=== PATIENT | female | born 1965 | race Caucasian/White ===

== ENCOUNTER 2018-02-26 14:03 | Observation (INO) | payer OTHER ==
[2018-02-26] MEDS ORDERED: Famotidine/PF 20 mg/2ml Vial ONE (14:33)
[2018-02-26] MEDS ORDERED: diphenhydrAMINE 50 MG/ML VIAL ONE (14:33)
[2018-02-26] MEDS ORDERED: methylPREDNISolone Sod Succ/PF 125 MG/2 ML VIAL ONE (14:33)
[2018-02-26] MEDS ORDERED: EPINEPHrine 1 MG/ML AMP ONE (16:24)
[2018-02-26 18:40] VITALS: BMI 36.0
[2018-02-26] MEDS ORDERED: Ondansetron ODT 4 MG TAB PO PRN (19:10)
[2018-02-26] MEDS ORDERED: diphenhydrAMINE 50 MG/ML VIAL IVP PRN (19:10)
[2018-02-26] MEDS ORDERED: Ondansetron HCl/PF 4 MG/2 ML Vial IVP PRN (19:10)
[2018-02-26] MEDS ORDERED: cloNIDine 0.1 MG TAB PO PRN (19:10)
[2018-02-26] MEDS ORDERED: hydrALAZINE 20 MG/ML VIAL SLOW IVP PRN (19:10)
[2018-02-26] MEDS ORDERED: Acetaminophen 500 MG TAB PO PRN (19:10)
[2018-02-26] MEDS ORDERED: Progesterone,Micronized 100 MG CAP PO SCH (21:00)
[2018-02-26] MEDS: clonazePAM 1 MG TAB PO SCH (21:25)
[2018-02-26] MEDS: Methocarbamol 500 MG TAB PO SCH (21:25)
[2018-02-26] MEDS: Famotidine 20 MG TAB PO SCH (21:26)
[2018-02-26] MEDS: diphenhydrAMINE 25 MG CAP PO SCH (21:26)
[2018-02-26] MEDS: DULoxetine 60 MG CAP PO SCH (21:26)
[2018-02-26] MEDS: methylPREDNISolone Sod Succ/PF 125 MG/2 ML VIAL IVP SCH (21:32)
[2018-02-26] MEDS: Acetaminophen/Codeine 30-300mg Tablet PO PRN (21:34)
[2018-02-26 21:50] LABS: Bilirubin Negative (Negative); Blood, Urine Negative (Negative); Clarity CLEAR (Clear); Glucose, Urine (Dipstick) Negative (Negative); Leukocyte Negative (Negative); Nitrite Negative (Negative); Protein, Urine (Dipstick) Negative (Neg-Trace); Specific Gravity, Urine 1.004 (1.002-1.036); Urobilinogen 0.2 mg/dL (0.2-1.0); pH, Urine 6.5 (5.0-9.0)
[2018-02-26 21:52] LABS: Bacteria/HPF None Seen HPF (None Seen); Hyaline Casts/LPF 0-3 HYALINE CAST LPF (0-3 Hyaline); RBC/HPF 0-3 HPF (0-3); Squamous Epithelial None Seen HPF (0-3); WBC/HPF None Seen HPF (0-3)
[2018-02-26] MEDS ORDERED: diphenhydrAMINE 50 MG/ML VIAL IVP SCH (23:59)
--- NOTE | 2018-02-27 00:43 | HP ---
DATE OF ADMISSION: 02/26/2018 PRIMARY CARE PHYSICIAN: Sixto Whatley M.D. CHIEF COMPLAINT: Difficulty swallowing and shortness of breath. HISTORY OF PRESENT ILLNESS: This is a 52-year-old female who presented to [facility] Emergency Department complaining of difficulty swallowing, mild shortness of breath that began last 24-48 hours. The patient states she noticed difficulty swallowing after eating some bread with honey and butter approximately 2 hours after the onset of symptoms. The patient denied a ny hives, rash, chemical exposure or family members with similar symptoms. The patient does admit th at she recently started lisinopril approximately 3-4 days prior to this evaluation, initiated by her primary care provider. The patient admits to some throat discomfort, throat clearing, mild hoarsenes s associated with the difficulty swallowing. In the emergency room, the patient underwent general ev aluation noted with angioedema, treated with IV Benadryl, Pepcid, Solu-Medrol, and epinephrine 0.3 m g IM x1 dose. The patient was transferred to the observation unit for further evaluation. PAST MEDICAL HISTORY: 1. Hypertension. 2. Anxiety disorder. 3. Chronic back pain with chronic Tylenol No. 4. PAST SURGICAL HISTORY: Status post hysterectomy. CURRENT MEDICATIONS: 1. Tylenol No. 4, 300/60 mg 1 tab p.o. t.i.d. 2. Methocarbamol 750 mg p.o. q.i.d. 3. Meloxicam 15 mg p.o. daily. 4. Estradiol 2 mg p.o. daily. 5. Micronized progesterone 100 mg p.o. at bedtime. 6. [place] Thyroid 60 mg p.o. daily. 7. Clonazepam 1 mg p.o. b.i.d. 8. Abilify 3 mg p.o. daily. 9. Cymbalta 60 mg p.o. b.i.d. 10. Lisinopril 2.5 mg p.o. daily. ALLERGIES: PENICILLIN. FAMILY HISTORY: No inheritable diseases per patient report. SOCIAL HISTORY: The patient resides in [place], [place]. Currently disabled. No alcohol, tobacco or il licit drug use. REVIEW OF SYSTEMS: The following complete review of systems was negative, unless otherwise mentioned in the HPI or below: Constitutional: Weight loss or gain, ability to conduct usual activities. Ski n: Rash, itching. Eyes: Double vision, pain. ENT/Mouth: Nose bleeding, neck stiffness, pain, tend erness. Cardiovascular: Palpitations, dyspnea on exertion, orthopnea. Respiratory: Shortness of b reath, wheezing, cough, hemoptysis, fever or night sweats. Gastrointestinal: Poor appetite, abdomin al pain, heartburn, nausea, vomiting, constipation, or diarrhea. Genitourinary: Urgency, frequency, dysuria, nocturia. Musculoskeletal: Pain, swelling. Neurologic/Psychiatric: Anxiety, depression. Allergy/Immunologic: Skin rash, bleeding tendency. Otherwise negative except as stated per HPI. PHYSICAL EXAMINATION: VITAL SIGNS: On admission, blood pressure 146/94, pulse 84, respiratory rate 20, temperature 98.9 de grees Fahrenheit, O2 saturation 99% on room air. GENERAL APPEARANCE: This is a 52-year-old female, alert and oriented x3, pleasant, respons ulices, in no acute distress. HEENT: Pupils are equal, round, and reactive to light and accommodation. Extraocular muscles are in tact. No scleral icterus, no conjunctival injection. Nares patent. OP is clear. Positive uvula ed juan with edema of the peritonsillar region. Mild salivary pooling in the posterior pharynx. Airway clear. No hoarseness. NECK: Supple, no cervical adenopathy, no thyromegaly, no carotid bruits, no JVD appreciated. Cervic al spine with full active and passive range of motion. No meningeal signs appreciated. CHEST: Lungs are clear to auscultation bilaterally. CARDIOVASCULAR: S1, S2, without noted murmur, rub or gallop. ABDOMEN: Rounded, soft, nontender, nondistended. Bowel sounds are positive in all four quadrants. There is no hepatosplenomegaly, no abdominal bruits, no rebound or guarding appreciated. EXTREMITIES: Warm and dry with fair turgor. No clubbing, cyanosis or asymmetric edema appreciated. Pulses palpable distally at the dorsalis pedis, posterior tibial, and popliteal arteries bilaterally . Capillary refill less than 2 seconds. NEUROLOGIC: Cranial nerves II-XII are grossly intact. No focal or lateralizing signs appreciated. PERTINENT LAB AND X-RAY FINDINGS: No current labs available. Telemetry shows sinus mechanism with h eart rates in the 70s. ASSESSMENT AND PLAN: 1. Angioedema secondary to ELENA inhibitors. The patient will be observed on the telemetry unit. We will continue Solu-Medrol 60 mg IV q.6 hours with additional Benadryl 25 mg p.o. q.6 hours. Continue Pepcid 20 mg p.o. b.i.d. We will continue to monitor for upper airway obstruction, currently airway patent. 2. Hypertension. We will provide p.r.n. clonidine/hydralazine for systolic blood pressure greater t srinivasan or equal to 170. Discontinue lisinopril. 3. Hypothyroidism. Continue [place] Thyroid 60 mg p.o. daily. 4. Chronic back pain. Resume home pain medication regimen. 5. Prophylaxis. Sequential compression devices while in bed. Pepcid 20 mg p.o. b.i.d. 6. Code status is FULL. Surrogate medical decision maker is the patient's mother.
[2018-02-27] MEDS: Methocarbamol 500 MG TAB PO SCH ×2 (01:12→02:29)
[2018-02-27] MEDS ORDERED: Methocarbamol 500 MG TAB PO PRN (01:28)
[2018-02-27] MEDS: diphenhydrAMINE 25 MG CAP PO SCH ×3 (02:07→13:29)
[2018-02-27] MEDS: methylPREDNISolone Sod Succ/PF 125 MG/2 ML VIAL IVP SCH ×3 (02:10→13:30)
[2018-02-27 04:58] LABS: Anion Gap 12 mmol/L (10-20); BUN (Urea Nitrogen) 7 mg/dL (9.8-20.1); Calc. Creatinine Clearance 1618 mL/min (70-130); Carbon Dioxide 25 mmol/L (22-29); Chloride 105 mmol/L (98-107); Estimated GFR-MDRD Greater than 90; Glucose 145 mg/dL (70-105); Potassium 3.8 mmol/L (3.5-5.1); Sodium 138 mmol/L (136-145)
[2018-02-27 05:56] LABS: Band 9 % (5-11); Hemoglobin 13.3 g/dL (12.0-16.0); Lymphocytes 11 % (21-51); MDiff Complete? YES; Mean Corpuscular HGB CONC 32.6 g/dL (32.0-36.0); Mean Corpuscular Hemoglobin 28.3 pg (27.0-31.0); Mean Corpuscular Volume 86.9 fL (78.0-98.0); Mean Platelet Volume 6.2 fL (7.4-10.4); Monocytes 3 % (0-10); Neutrophil 75 % (42-75); Platelet Count 359 thou/uL (130-400); RBC Distribution Width 12.8 % (11.5-14.5); Reactive Lymphocytes 2 % (0-10); Red Blood Cell (RBC) Count 4.71 mill/uL (4.20-5.40); White Blood Cell (WBC) Count 8.3 thou/uL (4.8-10.8)
[2018-02-27] MEDS: Famotidine 20 MG TAB PO SCH (07:54)
[2018-02-27] MEDS: DULoxetine 60 MG CAP PO SCH (07:54)
[2018-02-27] MEDS: clonazePAM 1 MG TAB PO SCH (07:55)
[2018-02-27] MEDS: Acetaminophen/Codeine 30-300mg Tablet PO PRN (07:58)
[2018-02-27] MEDS ORDERED: Meloxicam 7.5 MG TAB PO SCH (09:00)
[2018-02-27] MEDS ORDERED: Thyroid 60 MG TAB PO SCH (09:00)
[2018-02-27] MEDS ORDERED: Aripiprazole 2 MG TAB PO SCH (09:00)
[2018-02-27] MEDS ORDERED: Estradiol 1 MG TAB PO SCH (09:00)
[2018-02-27] MEDS ORDERED: Amlodipine 5 MG TAB PO SCH (11:15)
[2018-02-27 11:21] VITALS: TEMP 97.7
[2018-02-27 13:12] VITALS: BP 137/71
--- NOTE | 2018-02-27 14:38 | PDOC.EVN ---
Event Note - Event Note Event Note: patient discussed with NANO Miranda. agree with management and discharge plan
[2018-02-28] MEDS ORDERED: Amlodipine 5 MG TAB PO SCH ×2 (09:00)
--- NOTE | 2018-03-01 10:46 | DIS ---
DATE OF ADMISSION: 02/26/2018 DATE OF DISCHARGE: 02/27/2018 DISCHARGE DIAGNOSES: 1. Angioedema secondary to ELENA inhibitor, stable. 2. Hypertension, stable. 3. Hypothyroidism. 4. Chronic back pain. CONSULTATIONS: None. PERTINENT LABORATORY DATA AND X-RAY FINDINGS: WBC 8.3, RBC 4.71, hemoglobin 13.3. Sodium 138, potas sium 3.8. Urinalysis unremarkable. Blood pressure prior to discharge, 137/71. HOSPITAL COURSE: The patient was admitted after presenting to the ER with swelling of the right side of the pharynx and uvula with some shortness of breath and difficulty swallowing. The patient was a lso noted to have a slightly elevated blood pressure of 146/94, pulse 84, respirations 20, and temper ature of 98.9 degrees Fahrenheit with O2 saturation 99% on room air. She was given one dose of IM ep inephrine 0.3 mg x1 dose and tolerated well without any complications. She was observed overnight an d continued on IV Benadryl, Pepcid, Solu-Medrol 60 mg q.6 hours. She did not develop any chest pain, shortness of breath, or worsening symptoms. She was able to tolerate a liquid diet, which was then transitioned to a regular diet, which she tolerated well without any complications. Her swelling in pharynx along with her uvula enlargement had improved throughout the hospital course. Her home dose of lisinopril was discontinued and she was advised to stop this medication as it would give her simil ar symptoms in the future if taken again. She was then transitioned to amlodipine 2.5 mg daily, whic h she tolerated well. Her blood pressure remained stable throughout the hospital course with no furt her complications. She was examined prior to discharge and had felt that she had returned to [facility]. She was then started on Medrol Dosepak along with Pepcid twice daily, which she was advised to co ntinue these as outpatient post-discharge. She was also provided a prescription for Norvasc 2.5 mg d aily, and was advised to discontinue her home lisinopril. She verbalized her understanding for plan and she was stable for discharge, 02/27/2018. DISCHARGE MEDICATIONS: 1. Amlodipine 2.5 mg daily. 2. Diphenhydramine 25 mg q.6 hours as needed. 3. Pepcid 20 mg twice daily for 5 days. 4. Medrol Dosepak. 5. Clonazepam 1 mg twice daily. 6. [place] Thyroid 60 mg daily. 7. Progesterone 100 mg daily at bedtime. 8. Estradiol 2 mg daily. 9. Meloxicam 7.5 mg daily. 10. Abilify 3 mg daily. 11. Cymbalta 60 mg twice daily. 12. Methocarbamol 750 mg 4 times daily as needed for muscle spasms. 13. Acetaminophen with codeine every 8 hours as needed for pain. FOLLOWUP: The patient was advised to contact her primary care physician, Dr. Sixto Whatley and it was recommended that she follow up within 1-2 weeks of discharge. CONDITION ON DISCHARGE: Stable. ACTIVITY: As tolerated. DIET: Regular diet. CODE STATUS: FULL. DISPOSITION: Home on 02/27/2018.
== END 2018-02-27 14:00 | disposition home or self-care (01) ==
LOC: ERS 14:03 → 2SW 16:40 → UNDOADMOB 18:36 → 2SW 18:36
PROVIDERS: ADMIT Family Medicine; ATTEND Family Medicine
DX: T78.3XXA Angioneurotic edema, initial encounter (principal); T46.4X5A Adverse effect of angiotensin-converting-enzyme inhibitors, initial encounter; G89.29 Other chronic pain; M54.9 Dorsalgia, unspecified; F41.9 Anxiety disorder, unspecified; I10 Essential (primary) hypertension; Z79.899 Other long term (current) drug therapy; Z88.0 Allergy status to penicillin
CPT/HCPCS: 36415; 80048; 81001; 85007; 85027; 87081; 87430; 96361; 96372; 96374; 96375; 96376; 99406; G0378; J0171; J1200; J2930; S0028

== ENCOUNTER 2018-05-24 09:44 | Outpatient (CLI) | payer OTHER ==
--- NOTE | 2018-05-24 11:58 | ULT ---
ULTRASOUND ABDOMEN COMPLETE: DATE: 05/24/2018. HISTORY: Nausea and vomiting, R11.0, in 52-year-old female. FINDINGS: Liver: Normal echogenicity. Gallbladder: Numerous tiny gallstones layering along the dependent aspect of the gallbladder lumen, o n the order of a few millimeters in size each. Normal wall thickness of 2-3 mm. No pericholecystic fluid and no sonographic Lr's sign. Common duct: 4 mm. Spleen: No splenomegaly. Pancreas: Nonspecific sonographic appearance of the head and proximal body. Tail obscured by shadowi ng from bowel gas. Kidneys: No hydronephrosis. Abdominal aorta: No aneurysm. Inferior vena cava: Normal where visualized. IMPRESSION: 1. Cholelithiasis. 2. No evidence of acute cholecystitis or biliary obstruction. JN R POS: [facility]
== END 2018-05-24 09:45 | disposition home or self-care (01) ==
LOC: BICULT 09:44
PROVIDERS: ATTEND Internal Medicine
DX: R11.2 Nausea with vomiting, unspecified (principal); K80.20 Calculus of gallbladder without cholecystitis without obstruction
CPT/HCPCS: 76700

== ENCOUNTER 2019-01-01 07:49 | Outpatient (CLI) | payer OTHER ==
--- NOTE | 2019-01-01 12:36 | NM ---
HEPATOBILIARY SCAN: 01/01/19 HISTORY: Cholelithiasis. RADIOPHARMACEUTICAL: 4.7 millicuries technetium 99mm-Mebrofenin injected intravenously. FINDINGS: There is good contrast extraction of the liver with normal tracer excretion into the biliary tract an d small bowel loops and normal filling of the gallbladder. The calculated gallbladder ejection fraction measures 2% following an oral fatty meal. IMPRESSION: Chronic cholecystitis/gallbladder dyskinesia. POS: [facility]
== END 2019-01-01 07:50 | disposition home or self-care (01) ==
LOC: NM 07:49
PROVIDERS: ATTEND Internal Medicine
DX: K80.20 Calculus of gallbladder without cholecystitis without obstruction (principal); R10.11 Right upper quadrant pain
CPT/HCPCS: 78227; A9537

== ENCOUNTER 2019-02-10 06:50 | Outpatient (CLI) | payer OTHER ==
[2019-02-10 11:36] LABS: #Basophils 0.1 thou/uL (0.0-0.2); #Eosinphils 0.1 thou/uL (0.0-0.7); #Lymphocytes 2.6 thou/uL (1.20-3.40); #Monocytes 0.5 thou/uL (0.11-0.59); #Neutrophils 4.6 thou/uL (1.40-6.50); %Basophils 0.9 % (0.0-1.0); %Eosinophils 0.9 % (0.0-10.0); %Lymphocytes 33.2 % (21.0-51.0); %Monocytes 6.4 % (0.0-10.0); %Neutrophils 58.7 % (42.0-75.0); Hemoglobin 13.1 g/dL (12.0-16.0); Mean Corpuscular HGB CONC 33.5 g/dL (32.0-36.0); Mean Corpuscular Hemoglobin 29.3 pg (27.0-31.0); Mean Corpuscular Volume 87.4 fL (78.0-98.0); Platelet Count 342 thou/uL (130-400); RBC Distribution Width 11.9 % (11.5-14.5); Red Blood Cell (RBC) Count 4.46 mill/uL (4.20-5.40); White Blood Cell (WBC) Count 7.9 thou/uL (4.8-10.8)
[2019-02-10 11:47] LABS: ALT (SGPT) 30 U/L (8-55); AST (SGOT) 20 U/L (5-34); Alkaline Phosphatase 92 U/L (40-110); Anion Gap 12 mmol/L (10-20); BUN (Urea Nitrogen) 14 mg/dL (9.8-20.1); Bilirubin, Direct 0.1 mg/dL (0.1-0.3); Bilirubin, Total 0.2 mg/dL (0.2-1.2); Calc. Creatinine Clearance 0 mL/min (70-130); Calcium 9.2 mg/dL (7.8-10.44); Carbon Dioxide 28 mmol/L (22-29); Chloride 99 mmol/L (98-107); Estimated GFR-MDRD 86; Glucose 87 mg/dL (70-105); Potassium 4.8 mmol/L (3.5-5.1); Protein, Total 7.6 g/dL (6.0-8.3); Sodium 134 mmol/L (136-145)
--- NOTE | 2019-02-12 19:49 | EKG ---
Test Reason : Blood Pressure : / mmHG Vent. Rate : 068 BPM Atrial Rate : 068 BPM P-R Int : 216 ms QRS Dur : 102 ms QT Int : 412 ms P-R-T Axes : 066 047 066 degrees QTc Int : 438 ms Sinus rhythm with 1st degree A-V block Cannot rule out Anterior infarct , age undetermined Abnormal ECG No previous ECGs available Confirmed by BEHZAD DYKES, DR. Christie ([id number]) on 02/12/2019 7:48:31 PM Referred By: CARA Confirmed By:DR. Shahnaz WEN MD
== END 2019-02-10 06:51 | disposition home or self-care (01) ==
LOC: LABBT 06:50
PROVIDERS: ATTEND Surgery
DX: Z01.818 Encounter for other preprocedural examination (principal); K80.20 Calculus of gallbladder without cholecystitis without obstruction
CPT/HCPCS: 80048; 80076; 85025; 93005; 93010

== ENCOUNTER 2019-02-13 06:01 | Day surgery (SDC) | payer OTHER ==
[2019-02-10 10:32] VITALS: BMI 36.6
[2019-02-13] MEDS ORDERED: Fentanyl 100 MCG/2 ML VIAL ONE ×3 (06:25→10:59)
[2019-02-13] MEDS ORDERED: Bupivacaine/Epinephrine 0.25% 30 ML VIAL ONE (07:01)
[2019-02-13] MEDS ORDERED: Levofloxacin 500 mg/D5W 100 ml Premix Bag ONE (08:48)
[2019-02-13] MEDS ORDERED: Ketorolac Tromethamine 30 MG/ML VIAL ONE (09:54)
[2019-02-13] MEDS ORDERED: Dexamethasone 20 MG/5 ML VIAL ONE (09:54)
[2019-02-13] MEDS ORDERED: Rocuronium Bromide 10 MG/ML (10ML VIAL) ONE (09:54)
[2019-02-13] MEDS ORDERED: Lidocaine 1% PF 5 ML VIAL ONE (09:54)
[2019-02-13] MEDS ORDERED: Ondansetron PF 4 MG/2 ML Vial ONE (09:54)
[2019-02-13] MEDS ORDERED: PROPOFOL 200 MG/20 ML VIAL ONE (09:54)
--- NOTE | 2019-02-13 10:40 | OP ---
DATE OF PROCEDURE: 02/13/2019 PREOPERATIVE DIAGNOSIS: Symptomatic gallstones. POSTOPERATIVE DIAGNOSIS: Symptomatic gallstones. PROCEDURE PERFORMED: Laparoscopic cholecystectomy. ANESTHESIA: General. ESTIMATED BLOOD LOSS: Minimal. COMPLICATIONS: None. SPECIMEN: Gallbladder. FINDINGS: Chronic cholecystitis. PROCEDURE IN DETAIL: The patient was taken to the operating room and laid supine on the operating room table. After general anesthetic was obtained, the abdomen was prepped and draped in a sterile fashion. A curved incision was made below the umbilicus. Cautery was used to dissect down to the umbilical fascia. Umbilical fascia was incised and held up using a Carlos. The abdominal cavity was entered using a Patricia clamp. Holding stitch of Vicryl was placed on each side of the fascia. Wen trocar was placed. High-flow pneumoperitoneum was obtained. An upper midline 5 mm port and 2 right upper quadrant 5 mm ports were placed under direct camera visualization. The gallbladder was retracted from the gallbladder fossa. The peritoneum of the gallbladder was opened anteriorly and posteriorly. The critical view triangle was seen showing only the cystic duct and cystic artery branching from medial to lateral. There were no other branching structures. Two clips were placed proximally on the cystic duct and one laterally. It was cut using laparoscopic scissors. The cystic artery was taken in the same way. Electrocautery was then used to dissect the gallbladder out of the gallbladder fossa. The gallbladder was placed in an Endo catch bag and brought out through the Wen. There was no bleeding or bile in the liver bed. The cystic duct stump and cystic artery stump were intact, without evidence of extravasation or bleeding. All port sites were infiltrated using local anesthesia. All ports were removed under camera visualization. Pneumoperitoneum was let down. The Vicryl was used to close the fascial defect below the umbilicus. All incisions were irrigated and closed using 4-0 Monocryl and Dermabond. The patient was en route to Recovery in stable condition. All instrument counts, needle counts and lap counts were correct. Job ID: [id number]
[2019-02-13] MEDS ORDERED: HYDROcodone/Acetaminophen 5/325 mg Tablet ONE (12:28)
== END 2019-02-13 13:20 | disposition home or self-care (01) ==
LOC: SDC 06:01
PROVIDERS: ATTEND Surgery
PROC: 0FT44ZZ Resection of Gallbladder, Percutaneous Endoscopic Approach (ICD-10-PCS; principal; 2019-02-13)
DX: K80.10 Calculus of gallbladder with chronic cholecystitis without obstruction (principal); I10 Essential (primary) hypertension; F41.9 Anxiety disorder, unspecified; F32.9 Major depressive disorder, single episode, unspecified; E07.9 Disorder of thyroid, unspecified; F17.200 Nicotine dependence, unspecified, uncomplicated; G89.29 Other chronic pain; Z79.1 Long term (current) use of non-steroidal anti-inflammatories (NSAID); Z79.899 Other long term (current) drug therapy; Z88.0 Allergy status to penicillin; Z88.8 Allergy status to other drugs, medicaments and biological substances
CPT/HCPCS: 88304; J0131; J0690; J1956; J3010

== ENCOUNTER 2020-02-13 06:52 | Outpatient (CLI) | payer OTHER ==
[2020-02-14 12:00] LABS: SARS-CoV-2 MS2 Positive; SARS-CoV-2 N Gene Negative; SARS-CoV-2 S Gene Negative; SARS-CoV-2 by NAA Not Detected (NotDetected); SARS-CoV-2 orf1ab Negative
== END 2020-02-13 06:53 | disposition home or self-care (01) ==
LOC: LABBT 06:52
PROVIDERS: ATTEND Neurological Surgery
DX: M48.061 Spinal stenosis, lumbar region without neurogenic claudication (principal); M43.16 Spondylolisthesis, lumbar region; Z20.828 Contact with and (suspected) exposure to other viral communicable diseases
CPT/HCPCS: 87635; U0003

== ENCOUNTER 2020-02-18 07:32 | Day surgery (SDC) | payer OTHER ==
[2020-02-13 14:11] VITALS: BMI 38.2
--- NOTE | 2020-02-17 22:17 | HP ---
HISTORY OF PRESENT ILLNESS: Ms. Ponce is a pleasant 54-year-old woman referred to us by Dr. Whatley for evaluation of lower back pain with very convincing claudication symptoms that began roughly 2 to 3 months ago. She reports having lower back pain for many years prior and has attempted physical therapy, epidural steroid injections, all with limited efficacy. MRI from [facility] reveals well-appearing spine other than L4-5 where she has an early grade 1 slip and severe central canal stenosis mostly superimposed by lateral recess encroachment with facet joint. She denies weakness nor bowel or bladder incontinence. PHYSICAL EXAMINATION: Deferred for [facility]. PAST MEDICAL HISTORY: Significant for chronic pain, depression, arthritis, anxiety. ALLERGIES: HYPERTENSION. PAST SURGICAL HISTORY: Partial hysterectomy, cholecystectomy. ALLERGIES: PENICILLIN. CURRENT MEDICATIONS: 1. [place] Thyroid. 2. Clonazepam. 3. Cyclobenzaprine. 4. Duloxetine. 5. Estradiol. 6. Fluticasone. 7. Kenalog. 8. Meloxicam. 9. Methocarbamol. 10. Metoprolol. 11. Olmesartan. 12. Progesterone. 13. Sertraline. 14. Tizanidine. 15. Tramadol. ASSESSMENT: Lumbar spondylolisthesis with spinal stenosis and neurogenic claudication. PLAN: Dr. Dior met with the patient, reviewed imaging, advocated for an L4-5 decompression and fusion. He explained to the patient the risks, benefits, and alternatives to the procedure. The patient expressed understanding and elected to move forward with surgery as discussed. I do believe the patient is mentally competent and capable of making medical decisions for herself. We will move forward with surgery as planned. Job ID: [id number]
[2020-02-18] MEDS ORDERED: Levofloxacin 500 mg/D5W 100 ml Premix Bag ONE (09:08)
[2020-02-18] MEDS ORDERED: Clindamycin/D5W 900 mg/50 ml Premix Bag ONE (09:08)
[2020-02-18] MEDS ORDERED: Ondansetron PF 4 MG/2 ML Vial ONE (09:16)
[2020-02-18] MEDS ORDERED: Glycopyrrolate 0.2 MG/ML 5 ML SYRINGE ONE (09:16)
[2020-02-18] MEDS ORDERED: Lidocaine 1% PF 5 ML VIAL ONE (09:16)
[2020-02-18] MEDS ORDERED: Dexamethasone 20 MG/5 ML VIAL ONE (09:16)
[2020-02-18] MEDS ORDERED: Labetalol HCl 100 MG/20 ML VIAL ONE (09:16)
[2020-02-18] MEDS ORDERED: Rocuronium Bromide 10 MG/ML (10ML VIAL) ONE (09:16)
[2020-02-18] MEDS ORDERED: PROPOFOL 200 MG/20 ML VIAL ONE (09:16)
[2020-02-18] MEDS ORDERED: Midazolam HCl 2 mg/2 ml Vial ONE (09:31)
[2020-02-18] MEDS ORDERED: Thrombin 5000 UNITS/5 ML VIAL ONE (09:41)
[2020-02-18] MEDS ORDERED: Bupivacaine HCl 0.5%/Epinephrine 1:200,000/PF 30 ml Vial ONE (09:41)
[2020-02-18] MEDS ORDERED: Fentanyl 250 MCG/5 ML VIAL ONE (09:42)
[2020-02-18] MEDS ORDERED: Fentanyl 100 MCG/2 ML VIAL ONE (12:33)
[2020-02-18] MEDS ORDERED: Promethazine HCl 25 MG/ML VIAL ONE (12:39)
[2020-02-18] MEDS ORDERED: Morphine 4 MG/ML VIAL ONE (12:47)
[2020-02-18] MEDS ORDERED: Morphine 2 MG/ML VIAL ONE (12:56)
[2020-02-18] MEDS ORDERED: HYDROmorphone 2 MG/ML VIAL ONE (12:58)
[2020-02-18] MEDS ORDERED: Cyclobenzaprine 10 MG TAB ONE (14:37)
[2020-02-18] MEDS ORDERED: HYDROcodone/Acetaminophen 5/325 mg Tablet ONE (15:57)
--- NOTE | 2020-02-19 13:00 | OP ---
DATE OF PROCEDURE: 02/18/2020 WATER QUALITY MANAGER: Franco Thomas PA-C INDICATION: Pain. DIAGNOSES: Lumbar spondylolisthesis with low back pain and radiculopathy at L4-L5. PROCEDURES PERFORMED: Bilateral L4-L5 facetectomy, bilateral L4-L5 posterior lateral instrumented fusion, placement of allograft, and placement of autograft. ANESTHESIA: General. TECHNIQUE: The patient was brought into the operating room and placed under general anesthesia. She was flipped from supine to prone position on the operating room table. A linear incision was planned over the L4-L5 segment. After prepping and draping and after an appropriate preoperative pause, the incision was created. The soft tissues were swept away from midline. Self-retaining retractors were placed in the wound for optimal exposure. After confirming the appropriate levels with C-arm fluoroscopy, high-speed cutting drill bit was used to perform bilateral hemilaminectomies and facetectomies of the L4-L5 segment until the lateral recesses and the exiting L4 nerve roots were decompressed. After completing the decompression, pedicle screws were placed at L4 and L5 bilaterally with the aid of C-arm fluoroscopy. An intraoperative 3D CT scan was then performed to confirm appropriate placement of hardware. Rods were then placed across screw heads and then final tightened with set screws. Allograft and autograft materials were then placed in the lateral construct of the instrumentation. The wound was irrigated. Hemostasis was maintained throughout. The wound was then closed in anatomic layers, and a pressure dressing was applied. There were no known procedural complications. Job ID: [id number]
== END 2020-02-18 16:20 | disposition home or self-care (01) ==
LOC: SDC 07:32
PROVIDERS: ATTEND Neurological Surgery
PROC: 0SG00AJ Fusion of Lumbar Vertebral Joint with Interbody Fusion Device, Posterior Approach, Anterior Column, Open Approach (ICD-10-PCS; principal; 2020-02-18)
PROC: 0SG0071 Fusion of Lumbar Vertebral Joint with Autologous Tissue Substitute, Posterior Approach, Posterior Column, Open Approach (ICD-10-PCS; principal; 2020-02-18)
PROC: 01NB0ZZ Release Lumbar Nerve, Open Approach (ICD-10-PCS; principal; 2020-02-18)
DX: M48.062 Spinal stenosis, lumbar region with neurogenic claudication (principal); M43.16 Spondylolisthesis, lumbar region; M54.16 Radiculopathy, lumbar region; F41.9 Anxiety disorder, unspecified; F32.9 Major depressive disorder, single episode, unspecified; M19.90 Unspecified osteoarthritis, unspecified site; Z79.899 Other long term (current) drug therapy; Z88.0 Allergy status to penicillin; Z88.8 Allergy status to other drugs, medicaments and biological substances
CPT/HCPCS: 76000; C1713; C1768; J0690; J1100; J1170; J1956; J2250; J2270; J2405; J2550; J2704; J3010; J3490

== ENCOUNTER 2020-06-22 08:27 | Outpatient (CLI) | payer MEDICARE ==
--- NOTE | 2020-06-22 09:48 | CT ---
CT LUMBAR SPINE WITHOUT CONTRAST: HISTORY: Stenosis with claudication. COMPARISON: None. FINDINGS: Five lumbar-type vertebrae. Lumbar spine vertebral body height is maintained. No fracture. There are bilateral transpedicular screws at L4 and L5, without perihardware lucency. There is a right facetectomy at L4. Hypertrophic changes of the left L4-L5 facet joint. 4 mm of anterolisthesis of L4 for upon L5. Appropriate attenuation in the visualized lung bases, solid organs, alimentary canal and paraspinal m uscles. Surgically absent gallbladder. Limited evaluation the contents of the central spinal canal and neural foramina due to technique Visualized sacrum and bony pelvis are intact. Vacuum joint phenomenon in the left and right SI joints . L1-L2: No significant central canal stenosis or significant neural foraminal narrowing. L2-L3: Broad-based disc bulge, ligament flavum thickening and facet hypertrophy result in moderate ce ntral canal stenosis. Right neural foramen is moderately narrowed. Mild left neural foraminal narrowing. L3-L4: Vacuum disc phenomenon. Broad-based disc bulge, ligament flavum thickening and facet hypertrop hy result in moderate central canal stenosis. Vacuum joint phenomenon in the right facet joint. Moderate bilateral neural foraminal narrowing. L4-L5: Broad-based disc bulge and increased soft tissue density along the posterior elements results in moderate to severe central canal stenosis. Moderate bilateral neural foraminal narrowing. L5-S1: Vacuum disc phenomenon. Broad-based disc bulge encroaches upon the left and right subarticular zone. Presumed obscuration of bilateral traversing S1 nerve roots. There is ligamentum flavum thickening and facet hypertrophy. Vacuum joint phenomenon in bilateral facet joints. Moderate bilater al neural foraminal narrowing. IMPRESSION: 1. Degenerative changes of the lumbar spine as detailed above. 2. Lumbar fusion at L4-L5 without perihardware lucency. Grade 1 anterolisthesis of L4 upon L5. Transcribed Date/Time: 06/22/2020 9:52 AM
== END 2020-06-22 08:28 | disposition home or self-care (01) ==
LOC: BICCT 08:27
PROVIDERS: ATTEND Neurological Surgery
DX: M48.062 Spinal stenosis, lumbar region with neurogenic claudication (principal); M47.816 Spondylosis without myelopathy or radiculopathy, lumbar region; M47.817 Spondylosis without myelopathy or radiculopathy, lumbosacral region; M43.16 Spondylolisthesis, lumbar region; Z98.1 Arthrodesis status
CPT/HCPCS: 72131

== ENCOUNTER 2020-08-18 13:47 | Outpatient (CLI) | payer MEDICARE ==
[~2020-08-18 13:47] MED LIST: Magnevist 469MG/ML 20 ML VIAL ONE
== END 2020-08-18 13:48 | disposition home or self-care (01) ==
LOC: BICMRI 13:47
PROVIDERS: ATTEND Neurological Surgery
DX: M48.062 Spinal stenosis, lumbar region with neurogenic claudication (principal); M47.816 Spondylosis without myelopathy or radiculopathy, lumbar region; M47.817 Spondylosis without myelopathy or radiculopathy, lumbosacral region; M47.815 Spondylosis without myelopathy or radiculopathy, thoracolumbar region; Z98.1 Arthrodesis status
CPT/HCPCS: 72158; A9579

== ENCOUNTER 2025-01-31 11:03 | Emergency (ER) | payer MEDICARE ==
[~2025-01-31 11:03] MED LIST changes: +Iopamidol-370 76% 500 ML MDV (1 ML CHARGE) ONE; -Magnevist 469MG/ML 20 ML VIAL ONE
[2025-01-31] MEDS ORDERED: Famotidine/PF 20 mg/2ml Vial ONE (11:51)
[2025-01-31] MEDS ORDERED: diphenhydrAMINE 50 MG/ML VIAL ONE (11:51)
[2025-01-31 12:04] LABS: #Basophils 0.06 10x3/uL (0.0-0.2); #Eosinophils 0.07 10x3/uL (0.0-0.7); #Monocytes 0.71 10x3/uL (0.11-0.59); #Neutrophils 8.74 10x3/uL (1.40-6.50); %Basophils 0.5 % (0.0-1.0); %Eosinophils 0.5 % (0.0-10.0); %Lymphocytes 24.5 % (21.0-51.0); %Monocytes 5.6 % (0.0-10.0); %Neutrophils 68.4 % (42.0-75.0); Hematocrit 35.7 % (36.0-47.0); Hemoglobin 11.2 g/dL (12.0-16.0); Mean Corpuscular Hemoglobin 25.5 pg (27.0-31.0); Mean Corpuscular Volume 81.1 fL (78.0-98.0); Platelet Count 368 10x3/uL (130-400); Red Blood Cell (RBC) Count 4.40 mill/uL (4.20-5.40); White Blood Cell (WBC) Count 12.76 10x3/uL (4.8-10.8)
[2025-01-31] MEDS ORDERED: Ondansetron PF 4 MG/2 ML Vial ONE ×2 (12:11→12:14)
[2025-01-31 12:26] LABS: ALT (SGPT) 15 U/L (Less than 34); AST (SGOT) 18 U/L (11-34); Albumin 3.3 g/dL (3.1-4.5); Alkaline Phosphatase 128 U/L (40-110); Anion Gap 19 mmol/L (10-20); BUN (Urea Nitrogen) 31 mg/dL (9.8-20.1); Bilirubin, Total 0.4 mg/dL (0.3-1.2); Calc. Creatinine Clearance 0 mL/min (70-130); Calcium 9.6 mg/dL (7.8-10.44); Carbon Dioxide 21 mmol/L (22-29); Chloride 102 mmol/L (98-107); Globulin 4.4 g/dL (2.4-3.5); Glucose 77 mg/dL (70-105); Potassium 4.7 mmol/L (3.5-5.1); Sodium 137 mmol/L (136-145)
[2025-01-31] MEDS ORDERED: Cefepime 2 GM VIAL ONE (14:03)
[2025-01-31] MEDS ORDERED: HYDROcodone/Acetaminophen 5/325 mg Tablet ONE (15:03)
== END 2025-01-31 15:13 | disposition home or self-care (01) ==
LOC: ERS 11:03
DX: T78.3XXA Angioneurotic edema, initial encounter (principal); I10 Essential (primary) hypertension; Z87.891 Personal history of nicotine dependence; Z79.899 Other long term (current) drug therapy
CPT/HCPCS: 70491; 80053; 85025; 86141; 86161; 94760; J0692; J1200; J2405; J2919; 96365; 96375